=== PATIENT | female | born 1995 | race Two or more races ===

== ENCOUNTER 2024-09-24 13:50 | Inpatient (IN) | payer OTHER ==
[2024-09-24 14:16] VITALS: BMI 27.4
[2024-09-24] MEDS ORDERED: NICOTINE POLACRILEX 4 MG LOZENGE BC PRN (14:31)
[2024-09-24] MEDS ORDERED: DICYCLOMINE HCL 10 MG CAPSULE PO PRN (14:31)
[2024-09-24] MEDS ORDERED: NALOXONE (NARCAN) HCL 4 MG/0.1 ML SPRAY NS PRN (14:31)
[2024-09-24] MEDS ORDERED: LOPERAMIDE HCL 2 MG CAPSULE PO PRN (14:31)
[2024-09-24] MEDS ORDERED: IBUPROFEN 600 MG TABLET (FP) PO PRN (14:31)
[2024-09-24] MEDS ORDERED: MAG HYDROX/AL HYDROX/SIMETH 30 ML UNIT-DOSE CUP PO PRN (14:31)
[2024-09-24] MEDS ORDERED: BISMUTH SUBSALICYLATE 524 MG/30 ML PO PRN (14:31)
[2024-09-24] MEDS ORDERED: ONDANSETRON *ODT* 4 MG TABLET SL PRN (14:31)
[2024-09-24] MEDS ORDERED: IBUPROFEN 400 MG TABLET (FP) PO PRN (14:31)
[2024-09-24] MEDS ORDERED: BENZONATATE 200 MG CAPSULE PO PRN (14:31)
[2024-09-24] MEDS ORDERED: POLYETHYLENE GLYCOL (HEALTHYLAX) 3350 17 GM PACKET PO PRN (14:31)
[2024-09-24] MEDS ORDERED: BENZOCAINE/MENTHOL (CHLORASEPTIC ) LOZENGE MM PRN (14:31)
[2024-09-24] MEDS ORDERED: guaiFENesin 600 MG TABLET.ER (FP) PO PRN (14:31)
[2024-09-24] MEDS ORDERED: ACETAMINOPHEN 325 MG TABLET (FP) PO PRN (14:31)
[2024-09-24] MEDS ORDERED: MAGNESIUM HYDROX 2400MG/30ML ORAL SUSPENSION 30 ML CUP PO PRN (14:31)
[2024-09-24] MEDS: hydrOXYzine PAMOATE 25 MG CAPSULE (FP) PO PRN (16:48)
[2024-09-24] MEDS: METHOCARBAMOL 500 MG TABLET PO PRN (16:48)
[2024-09-24 18:27] VITALS: BP 128/68; PULSE 76; RESP 16; TEMP 97.7
[2024-09-24] MEDS ORDERED: THIAMINE 100 MG TABLET PO SCH (22:00)
[2024-09-24] MEDS ORDERED: MELATONIN 5 MG TABLETS PO SCH (22:00)
[2024-09-25] MEDS ORDERED: PRENATAL VITAMINS W/ FOLIC ACID TABLET (FP) PO SCH (10:00)
== END 2024-09-24 18:00 | disposition left against medical advice (07) | DRG 770 ==
LOC: YASAS 13:50 → Y6N 14:59
PROVIDERS: ADMIT Allergy & Immunology; ATTEND Allergy & Immunology
PROC: HZ2ZZZZ Detoxification Services for Substance Abuse Treatment (ICD-10-PCS; principal; 2024-09-24)
DX: F11.23 Opioid dependence with withdrawal (principal); F12.10 Cannabis abuse, uncomplicated; F17.210 Nicotine dependence, cigarettes, uncomplicated
CPT/HCPCS: 93005; 93010